=== PATIENT | male | born 1945 | race Caucasian/White ===

== ENCOUNTER → 2016-03-16 | Day surgery (SDC) | payer MEDICARE ==
[~2016-03-16] VITALS: Ht 182.9 cm; Wt 88.9 kg
[~2016-03-16] MED LIST: ASPI32ECTA PO; LIDOCAINE 2% W/EPIN INJ 20ML **PRES FREE As Ordered ONE; LIDOCAINE 2% W/EPIN INJ 20ML **PRES FREE XX ONE; LIDOCAINE 4% INJ 5 ML AMP OU ONE; MAXITROL OPHTH OINT 3.5 GM As Ordered ONE; MAXITROL OPHTH OINT 3.5 GM XX ONE; MIDAZOLAM INJ 2 MG/2 ML VIAL (J2250) As Ordered ONE; OFLOXACIN 0.3 % (OCUFLOX) OPTH SOL 5ML OS ONE; POVIDONE-IODINE 5% OPHTH PREP SOL 30ML As Ordered ONE; SIMB1SUS OP; TIMOLOL OU; TRAVOPROST OU; fentaNYL 100 MCG/2 ML INJECTION (J3010) As Ordered ONE; mitoMYcin (FOR OPHTHALMIC USE) 0.3MG/1ML SYRINGE IN NaCl (J7999) XX ONE
[2016-03-16 11:15] VITALS: BP 115/65
== END | disposition home or self-care (01) ==
LOC: M SDC 06:50
PROVIDERS: ATTEND Ophthalmology
DX: H40.812 Glaucoma with increased episcleral venous pressure, left eye (principal)
CPT/HCPCS: 66183; C1783; J2250; J3010; J7999

== ENCOUNTER → 2016-06-01 | Day surgery (SDC) | payer MEDICARE ==
[~2016-06-01] VITALS: Ht 182.9 cm; Wt 93.0 kg
[~2016-06-01] MED LIST changes: +D5W/0.2% SODIUM CHLORIDE 250 ML IV SCH; +KETO5OPD OS; -LIDOCAINE 2% W/EPIN INJ 20ML **PRES FREE XX ONE; -MAXITROL OPHTH OINT 3.5 GM XX ONE; +OFLOXACIN 0.3 % (OCUFLOX) OPTH SOL 5ML OD ONE; -OFLOXACIN 0.3 % (OCUFLOX) OPTH SOL 5ML OS ONE; +PREDOPD OS; +SIMB1SUS OD; -SIMB1SUS OP; +TIMOLOL OD; -TIMOLOL OU; +TOBRSUS41 OD; +TRAVOPROST OD; -TRAVOPROST OU; +VITA100037 PO; +mitoMYcin (FOR OPHTHALMIC USE) 0.3MG/1ML SYRINGE IN NaCl (J7999) As Ordered ONE; -mitoMYcin (FOR OPHTHALMIC USE) 0.3MG/1ML SYRINGE IN NaCl (J7999) XX ONE
[2016-06-01 12:45] VITALS: BP 120/70
== END | disposition home or self-care (01) ==
LOC: M SDC 07:27
PROVIDERS: ATTEND Ophthalmology
DX: H40.811 Glaucoma with increased episcleral venous pressure, right eye (principal); Z79.82 Long term (current) use of aspirin
CPT/HCPCS: 66183; C1783; J2250; J3010; J7999

== ENCOUNTER 2016-11-23 09:55 | Day surgery (SDC) | payer MEDICARE ==
[~2016-11-23] VITALS: Ht 182.9 cm; Wt 93.0 kg
[~2016-11-23 09:55] MED LIST changes: +ACETAMINOPHEN 325 MG TAB PO PRN; +ASPI325T24 PO; -ASPI32ECTA PO; +BSS with VANC/TOB/EPI for EYE CASES IR ONE; +CYCLOPENTOLATE 2% OPHTH SOLN 2ML BTL OD ONE; -D5W/0.2% SODIUM CHLORIDE 250 ML IV SCH; +KETO5OPD OD; -KETO5OPD OS; -LIDOCAINE 2% W/EPIN INJ 20ML **PRES FREE As Ordered ONE; +LIDOCAINE 3.5 % 1ML OPHTH TOPICAL GEL OU ONE; -LIDOCAINE 4% INJ 5 ML AMP OU ONE; -MAXITROL OPHTH OINT 3.5 GM As Ordered ONE; -MIDAZOLAM INJ 2 MG/2 ML VIAL (J2250) As Ordered ONE; +PHENYLEPHRINE 2.5% OPHTH SOL 2ML OD ONE; -POVIDONE-IODINE 5% OPHTH PREP SOL 30ML As Ordered ONE; +PROPARACAINE 0.5% OPHTH SOL 15ML OS PRN; +TROPICAMIDE 1% OPHTH SOLN 2ML OD ONE; -VITA100037 PO; +VITA100067 PO; -fentaNYL 100 MCG/2 ML INJECTION (J3010) As Ordered ONE; -mitoMYcin (FOR OPHTHALMIC USE) 0.3MG/1ML SYRINGE IN NaCl (J7999) As Ordered ONE
[2016-11-23] MEDS ORDERED: LR 1,000 ML IV ONE (10:15)
[2016-11-23] MEDS ORDERED: PHENYLEPHRINE HCL 10 % OPHTH. SOL 5ML As Ordered ONE (10:53)
[2016-11-23] MEDS ORDERED: LIDOCAINE 1% SDV 5 ML VIAL As Ordered ONE (10:57)
[2016-11-23] MEDS ORDERED: TRIAMCINOLONE PRES FR 40 MG/ML 1ML(TRIESENCE)(OR EYE ONLY)(J3300 PER 1MG) As Ordered ONE (10:57)
[2016-11-23] MEDS ORDERED: POVIDONE-IODINE 5% OPHTH PREP SOL 30ML As Ordered ONE (10:57)
[2016-11-23] MEDS ORDERED: MOXIFLOXACIN IN BSS 0.25MG/0.25ML INTRACAMERAL INJ (OR EYE ONLY)(J2280) As Ordered ONE (10:58)
[2016-11-23] MEDS ORDERED: HEALON DUET (HEALON 10MG/ML 0.55ML & HEALON ENDOCOAT 30MG/ML 0.85ML) As Ordered ONE (10:58)
[2016-11-23] MEDS ORDERED: PHENYLEPHRINE HCL 10 % OPHTH. SOL 5ML OD ONE (11:00)
[2016-11-23] MEDS ORDERED: fentaNYL 100 MCG/2 ML INJECTION (J3010) As Ordered ONE (11:12)
[2016-11-23] MEDS ORDERED: MIDAZOLAM INJ 2 MG/2 ML VIAL (J2250) As Ordered ONE (11:12)
[2016-11-23 11:55] VITALS: BP 139/74
[2016-11-23] MEDS ORDERED: AcetaZOLAMIDE 500 MG ER CAP As Ordered ONE (11:57)
[2016-11-23] MEDS ORDERED: LR 1,000 ML IV SCH (12:00)
[2016-11-23] MEDS ORDERED: fentaNYL 100 MCG/2 ML INJECTION (J3010) IV PRN (12:00)
[2016-11-23] MEDS ORDERED: ONDANSETRON 4MG/2ML VIAL (J2405) IV PRN (12:00)
[2016-11-23] MEDS ORDERED: PROPARACAINE 0.5% OPHTH SOL 15ML OD PRN (12:28)
[2016-11-23] MEDS ORDERED: KETOROLAC 0.5% OPHTH SOLN OS ONE (12:30)
[2016-11-23] MEDS ORDERED: AcetaZOLAMIDE 500 MG ER CAP PO ONE (12:30)
[2016-11-23] MEDS ORDERED: TRIMETHOBENZAMIDE 300 MG CAP PO PRN (12:30)
[2016-11-23] MEDS ORDERED: KETOROLAC 0.5% OPHTH SOLN OD ONE (12:30)
--- NOTE | 2016-11-25 19:00 | RO ---
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 PROCEDURE: Phacoemulsification with intraocular implantation of Hoya, power 8.5 diopters. SURGEON: Nubia Garcia MD WET PROCESS OPERATOR: None. ANESTHESIA: COMPLICATIONS: None. DESCRIPTION OF PROCEDURE: After informed consent, which included the insertion of a regular Hoya lens and not doing the true line because it was leaving significant astigmatism and also patient stated that he is used to wearing glasses so if he has to wear glasses, he would rather just have a regular lens. After the informed consent, the patient was brought to the operating room, laid in supine position. The eye was prepped and draped in a sterile fashion for ophthalmic surgery, and a lid speculum was placed. A sideport incision was made, and 1% preservative-free Lidocaine was injected into the clear cornea. Viscoat was then injected through the sideport. Anterior chamber was entered with a 2.5 mm keratome, temporally through clear cornea, and Malyugin ring 7 mm was inserted to dilate the pupil as it was miotic. Circular capsulorrhexis was then made. The nucleus was hydrodissected and then phacoemulsification done within the capsular bag, followed by aspiration of the cortical material and injection of the Healon. Intraocular lens was then placed in the bag. Excess viscoelastic aspirated after Malyugin ring was removed. Intracameral moxifloxacin was given. Wound hydrated and sub-Tenon injection of triamcinolone was given inferiorly. Case discussed in detail with patient.
[2016-12-01] MEDS ORDERED: LR 500 ML IV ONE (07:30)
== END 2016-11-23 12:25 | disposition home or self-care (01) ==
LOC: M SDC 09:55
PROVIDERS: ATTEND Ophthalmology
DX: H25.9 Unspecified age-related cataract (principal); H57.03 Miosis; Z79.82 Long term (current) use of aspirin
CPT/HCPCS: 66982; J2250; J2280; J3010; J3300; V2632

== ENCOUNTER 2016-12-01 07:00 | Day surgery (SDC) | payer MEDICARE ==
[~2016-12-01] VITALS: Ht 182.9 cm; Wt 93.0 kg
[~2016-12-01 07:00] MED LIST changes: -CYCLOPENTOLATE 2% OPHTH SOLN 2ML BTL OD ONE; +CYCLOPENTOLATE 2% OPHTH SOLN 2ML BTL OS ONE; -OFLOXACIN 0.3 % (OCUFLOX) OPTH SOL 5ML OD ONE; +OFLOXACIN 0.3 % (OCUFLOX) OPTH SOL 5ML OS ONE; -PHENYLEPHRINE 2.5% OPHTH SOL 2ML OD ONE; +PHENYLEPHRINE 2.5% OPHTH SOL 2ML OS ONE; -PROPARACAINE 0.5% OPHTH SOL 15ML OS PRN; -TROPICAMIDE 1% OPHTH SOLN 2ML OD ONE; +TROPICAMIDE 1% OPHTH SOLN 2ML OS ONE
[2016-12-01] MEDS ORDERED: PROPARACAINE 0.5% OPHTH SOL 15ML XX PRN (07:01)
[2016-12-01] MEDS ORDERED: MIDAZOLAM INJ 2 MG/2 ML VIAL (J2250) As Ordered ONE (08:39)
[2016-12-01] MEDS ORDERED: POVIDONE-IODINE 5% OPHTH PREP SOL 30ML As Ordered ONE (08:44)
[2016-12-01] MEDS ORDERED: LIDOCAINE 1% SDV 5 ML VIAL As Ordered ONE (08:44)
[2016-12-01] MEDS ORDERED: TRIAMCINOLONE PRES FR 40 MG/ML 1ML(TRIESENCE)(OR EYE ONLY)(J3300 PER 1MG) As Ordered ONE (08:44)
[2016-12-01] MEDS ORDERED: MOXIFLOXACIN IN BSS 0.25MG/0.25ML INTRACAMERAL INJ (OR EYE ONLY)(J2280) As Ordered ONE (08:44)
[2016-12-01] MEDS ORDERED: HEALON DUET (HEALON 10MG/ML 0.55ML & HEALON ENDOCOAT 30MG/ML 0.85ML) As Ordered ONE (08:45)
[2016-12-01] MEDS ORDERED: AcetaZOLAMIDE 500 MG ER CAP As Ordered ONE (09:35)
[2016-12-01 09:40] VITALS: BP 130/79
[2016-12-01] MEDS ORDERED: ONDANSETRON 4MG/2ML VIAL (J2405) IV PRN (09:45)
[2016-12-01] MEDS ORDERED: KETOROLAC 0.5% OPHTH SOLN XX ONE (09:45)
[2016-12-01] MEDS ORDERED: AcetaZOLAMIDE 500 MG ER CAP PO ONE (09:45)
[2016-12-01] MEDS ORDERED: TRIMETHOBENZAMIDE 300 MG CAP PO PRN (09:45)
[2016-12-01] MEDS ORDERED: ACETAMINOPHEN TAB 650MG DOSE (2X325MG) PO PRN (09:45)
--- NOTE | 2016-12-01 16:47 | RO ---
DATE OF PROCEDURE: 12/01/2016 PREPROCEDURE DIAGNOSIS: Malyugin ring. Cataract left eye and miosis left eye. POSTPROCEDURE DIAGNOSIS: Malyugin ring. Cataract left eye and miosis left eye. PROCEDURE: Phacoemulsification with intraocular lens implantation, model [id number], diopter 8. SURGEON: Dr. Nubia Garcia PREPAROLE COUNSELING AIDE: None. ANESTHESIA: COMPLICATIONS: None. DESCRIPTION OF PROCEDURE: The patient was brought to the operating room, laid in supine position. The eye was prepped and draped in a sterile fashion for ophthalmic surgery, following which a lid speculum was placed and a sideport incision was made and EndoCoat was injected into the anterior chamber. Temporal clear corneal incision was then made with a 2.5 mm keratome and capsulorrhexis was done, following which hydrodissection was done and phacoemulsification was done in a divide and conquer method. Excess cortical material was then aspirated using a revision aspiration cannula. Viscoelastic was then placed into the capsular bag and intraocular lens placed and rotated to the predesired, premarked astigmatic correction, which was done in the preoperative area. Excess viscoelastic was aspirated, wound was hydrated. Intracameral moxifloxacin and sub-Tenon Kenalog was given. Lid speculum removed. Patient returned to the recovery room in stable condition. Prior to aspiration of the Healon, Malyugin ring was removed with the help of the Malyugin hook.
== END 2016-12-01 09:45 | disposition home or self-care (01) ==
LOC: M SDC 07:00
PROVIDERS: ATTEND Ophthalmology
DX: H25.9 Unspecified age-related cataract (principal); H57.03 Miosis; Z79.82 Long term (current) use of aspirin
CPT/HCPCS: 66982; J2250; J2280; J3300; V2787